=== PATIENT | female | born 1990 | race Caucasian/White ===

== ENCOUNTER 2017-03-02 16:01 | Emergency (ER) | payer OTHER ==
[~2017-03-02] VITALS: Ht 167.6 cm; Wt 77.1 kg
[2017-03-02] MEDS ORDERED: LIDOCAINE 1% HCL (LOCAL ANESTH.) INJ 20ML MDV IN ONE (17:00)
[2017-03-02] MEDS ORDERED: ONDANSETRON HCL 4 MG/2 ML VIAL ONE (17:04)
[2017-03-02] MEDS ORDERED: SODIUM CHLORIDE 0.9% 1,000 ML IV ONE (17:15)
[2017-03-02] MEDS ORDERED: ONDANSETRON HCL 4 MG/2 ML VIAL IV ONE (17:15)
[2017-03-02 17:55] VITALS: BP 113/69
== END 2017-03-02 18:37 | disposition home or self-care (01) ==
LOC: ER 16:01
DX: S01.81XA Laceration without foreign body of other part of head, initial encounter (principal); S51.812A Laceration without foreign body of left forearm, initial encounter; W25.XXXA Contact with sharp glass, initial encounter; Y93.89 Activity, other specified; Y99.8 Other external cause status; Y92.098 Other place in other non-institutional residence as the place of occurrence of the external cause
CPT/HCPCS: 12002; 12015; 70450; 96361; 96374; 99284; J2001; J2405; J7030

== ENCOUNTER 2017-03-11 15:57 | Emergency (ER) | payer OTHER ==
[~2017-03-11] VITALS: Ht 167.6 cm; Wt 77.1 kg
[2017-03-11 16:44] VITALS: BP 131/86
== END 2017-03-11 17:06 | disposition home or self-care (01) ==
LOC: ER 16:01
DX: S01.81XD Laceration without foreign body of other part of head, subsequent encounter (principal); X58.XXXD Exposure to other specified factors, subsequent encounter

== ENCOUNTER 2022-12-11 01:27 | Emergency (ER) | payer MEDICAID, OTHER ==
[~2022-12-11] VITALS: Ht 160 cm; Wt 67.3 kg
[2022-12-11 01:48] LABS: Basophils # (auto) 0.1 10 ^3/uL (0-0.2); Basophils % (auto) 1.1 % (0.0-2.0); Eosinophils # (auto) 0 10 ^3/uL (0-0.8); Eosinophils % (auto) 0.3 % (0.0-7.0); Hematocrit 40.5 % (36.0-46.0); Hemoglobin 13.8 g/dL (12.2-16.2); Lymphocytes # (auto) 2.3 10 ^3/uL (0.4-5.4); Lymphocytes % (auto) 41.7 % (10.0-50.0); Mean Corpuscular Hemoglobin 32.9 pg (28.0-32.0); Mean Corpuscular Hgb Conc. 34.2 g/dL (32.0-36.0); Mean Corpuscular Volume 96.3 fL (80.0-100.0); Monocytes # (auto) 0.6 10 ^3/uL (0-1.3); Monocytes % (auto) 10.1 % (0.0-12.0); Neutrophils # (auto) 2.6 10 ^3/uL (1.6-8.6); Neutrophils % (auto) 46.8 % (37.0-80.0); Nucleated Red Blood Cells % 0.1 %; Red Blood Cells 4.21 10^6/uL (4.0-5.20); Red Cell Distribution Width 13.2 % (11.8-14.3); White Blood Cell 5.5 10^3/uL (4.4-10.8)
[2022-12-11 02:05] LABS: Albumin 4.3 g/dL (3.4-5.0); Calcium 8.8 mg/dL (8.5-10.1); Potassium 3.5 mmol/L (3.5-5.1)
[2022-12-11 02:07] LABS: BUN/Creatinine Ratio 18.2 (10.0-20.0); Urine Bacteria FEW /hpf (None Seen); Urine Blood 1+ /uL (Negative); Urine Specific Gravity 1.022 (1.001-1.035); Urine WBC <1 /hpf (0 - 5)
[2022-12-11 02:10] LABS: Bilirubin, Total 0.2 mg/dL (0.2-1.0); Total Protein 7.7 g/dL (6.4-8.2)
[2022-12-11] MEDS ORDERED: ONDANSETRON ODT 4 MG TAB PO ONE (06:45)
[2022-12-11] MEDS ORDERED: ACETAMINOPHEN 325 MG TAB PO ONE (06:45)
[2022-12-11] MEDS ORDERED: LORazepam 0.5 MG TAB PO ONE (06:45)
[2022-12-11] MEDS ORDERED: ASPirin 81 mg TAB PO ONE (06:45)
[2022-12-11] MEDS ORDERED: MAALOX PLUS or MAALOX 30 ML PO ONE (06:45)
[2022-12-11 07:27] VITALS: BP 128/92; RESP 18; O2SAT 99
[2022-12-11 07:35] LABS: Amphetamine Screen, Urine NEGATIVE (NEGATIVE); Barbiturate Scree,Urine NEGATIVE (NEGATIVE); Benzodiazephine Screen, Urine NEGATIVE (NEGATIVE); Cannabinoid Screen, Urine NEGATIVE (NEGATIVE); Cocaine Screen, Urine NEGATIVE (NEGATIVE); Opiate Scree,Urine NEGATIVE (NEGATIVE); Phencyclidine Screen, Urine NEGATIVE (NEGATIVE)
[2022-12-11 07:58] VITALS: TEMP 97.9
[2022-12-11 08:37] VITALS: PULSE 119
[2022-12-11] MEDS ORDERED: METO-281 PO (08:55)
[2022-12-11] MEDS ORDERED: PANT40TA2 PO (08:55)
[2022-12-11] MEDS ORDERED: ACET-1304 PO (08:55)
== END 2022-12-11 08:55 | disposition home or self-care (01) ==
LOC: ER 01:30
DX: R07.89 Other chest pain (principal); F41.9 Anxiety disorder, unspecified; F10.129 Alcohol abuse with intoxication, unspecified; J45.909 Unspecified asthma, uncomplicated; Z79.899 Other long term (current) drug therapy; Y90.2 Blood alcohol level of 40-59 mg/100 ml
CPT/HCPCS: 36415; 71045; 80053; 80307; 81001; 83735; 84484; 85025; 85379; 93005; 99285; Q0162